=== PATIENT | male | born 1970 | race Caucasian/White ===

== ENCOUNTER 2022-02-05 17:17 | Inpatient (IN) | payer OTHER ==
[~2022-02-05] VITALS: Ht 172.7 cm; Wt 86.2 kg
[2022-02-05 18:26] LABS: BASOPHILS % 0.6 % (0.0-2.0); HEMATOCRIT. 43.3 % (42.0-52.0); HEMOGLOBIN. 15.1 g/dL (14.0-18.0); LYMPHOCYTES % 19.3 % (20.0-50.0); MEAN CORPUSCULAR HEMOGLOBIN 32.3 pg (28.0-32.0); MEAN CORPUSCULAR VOLUME 92.6 fL (80.0-94.0); MONOCYTES % 8.6 % (2.0-8.0); NEUTROPHILS % 70.5 % (40.0-76.0); PLATELET 234 x1000/uL (130-400); RED BLOOD CELL COUNT 4.67 mill/uL (4.7-6.1); RED CELL DISTRIBUTION WIDTH 14.1 % (11.6-14.6)
[2022-02-05 18:27] LABS: CLARITY URINE CLEAR (CLEAR); COLOR URINE YELLOW (YELLOW); KETONES URINE NEGATIVE (NEGATIVE); LEUKOCYTE ESTERASE URINE NEGATIVE (NEGATIVE); NITRITE URINE NEGATIVE (NEGATIVE); OCCULT BLOOD URINE 1+ (NEGATIVE); PH URINE 5.5 (4.5-8.0); PROTEIN URINE NEGATIVE (NEGATIVE); SPECIFIC GRAVITY URINE 1.007 (1.005-1.030); UROBILINOGEN URINE 0.2 E.U./dL (0.2-1.0)
[2022-02-05 18:37] LABS: CHLORIDE 112 mEq/L (98-107)
[2022-02-05] MEDS ORDERED: POTASSIUM CHLORIDE 20MEQ TABLET SR PO NR (19:45)
[2022-02-05] MEDS ORDERED: ONDANSETRON HCL 4MG/2ML INJ IV PRN (19:45)
[2022-02-05] MEDS ORDERED: CLONIDINE 0.1MG TABLET PO PRN (19:45)
[2022-02-05] MEDS ORDERED: DIPHENHYDRAMINE 50MG/ML VIAL IV PRN (19:45)
[2022-02-05] MEDS ORDERED: ZOLPIDEM TARTRATE 5MG TABLET PO PRN (19:45)
[2022-02-05] MEDS ORDERED: ACETAMINOPHEN 325MG TABLET PO PRN ×2 (19:45)
[2022-02-05] MEDS: SODIUM CHLORIDE 0.9% 1,000 ML IV SCH (20:56)
[2022-02-05 22:30] VITALS: BP 137/68
[2022-02-06 01:56] VITALS: BP 124/72
[2022-02-06 04:00] VITALS: BP 122/74
[2022-02-06] MEDS: SODIUM CHLORIDE 0.9% 1,000 ML IV SCH ×2 (04:53→05:39)
[2022-02-06 07:37] LABS: BASOPHILS % 0.5 % (0.0-2.0); EOSINOPHILS % 2.4 % (0.0-5.0); HEMATOCRIT. 41.3 % (42.0-52.0); HEMOGLOBIN. 14.6 g/dL (14.0-18.0); LYMPHOCYTES % 24.1 % (20.0-50.0); MEAN CORPUSCULAR HEMOGLOBIN 32.6 pg (28.0-32.0); MEAN CORPUSCULAR VOLUME 92.6 fL (80.0-94.0); MEAN PLATELET VOLUME 10.4 fl (7.4-10.4); MONOCYTES % 8.2 % (2.0-8.0); NEUTROPHILS % 64.8 % (40.0-76.0); PLATELET 219 x1000/uL (130-400); RED BLOOD CELL COUNT 4.47 mill/uL (4.7-6.1); RED CELL DISTRIBUTION WIDTH 14.2 % (11.6-14.6)
[2022-02-06 07:46] LABS: CHLORIDE 109 mEq/L (98-107)
[2022-02-06 08:00] VITALS: BP 122/84
[2022-02-06 12:00] VITALS: BP 114/65
[2022-02-06 14:34] VITALS: BP 114/65
[2022-02-06 16:00] VITALS: BP 128/69
== END 2022-02-06 15:50 | disposition home or self-care (01) | DRG 468 ==
LOC: ER 17:17 → 6EST 18:28
PROVIDERS: ADMIT Internal Medicine; ATTEND Internal Medicine
DX: N32.0 Bladder-neck obstruction (principal); E87.6 Hypokalemia; N40.1 Benign prostatic hyperplasia with lower urinary tract symptoms; Z59.00 Homelessness unspecified
CPT/HCPCS: 36415; 80048; 80053; 81003; 83735; 85025; 99291; A4315